=== PATIENT | male | born 1985 | race Caucasian/White ===

== ENCOUNTER 2023-01-06 01:32 | Emergency (ER) | payer MEDICARE ==
--- NOTE | 2023-01-06 01:59 | ERPHSYRPT ---
- History of Present Illness Time Seen by Provider: 01/06/23 01:45 Source: patient, police Exam Limitations: clinical condition Physician History: This is a 37-year-old white male patient who is supposed to be on psychiatric medications and who has a lot of issues going on with his family including his mom being very ill and presented to the emergency department waiting room dressed and then undressed completely naked standing and sitting around. He suddenly left and apparently went to a nearby home and attempted to get into the house and shed in the same condition. Law enforcement was notified and patient was brought into the emergency department. Patient has being diagnosed with severe anxiet, paranoia and delusional behavior. He has not been on his medic ation since April 2022 because he "did not need to be on them". He denies headache, he denies chest pain, he denies shortness of breath, he denies abdominal pain. He denies nausea or vomiting. He denies alcohol use. He also denies illicit drug use. He states he is not suicidal or homicidal. Ad ditional, independent history provided by the patient's sister. Timing/Duration: today Severity of Symptoms-Max: moderate Severity of Symptoms-Current: moderate Associated Symptoms: depressed, paranoid Previous symptoms: no prior history Allergies/Adverse Reactions: No Known Drug Allergies Allergy (Unverified 01/06/23 01:42) Home Medications: No Reportable Medications [No Reported Medications] 01/06/23 [History] Travel Risk - International Travel Have you traveled outside of the country in past 3 weeks: No - Coronavirus Screening Are you exhibiting any of the following symptoms?: No Close contact with a COVID-19 positive Pt in past 14-21 Days: No - Past Medical History Pertinent Past Medical History: Yes Psycho-Social History: Anxiety, Other (Paranoia and delusional behavior) - Review of Systems Constitutional: No Symptoms Eyes: No Symptoms Ears, Nose, & Throat: No Symptoms Respiratory: No Symptoms Cardiac: No Symptoms Abdominal/Gastrointestinal: No Symptoms Genitourinary Symptoms: No Symptoms Musculoskeletal: No Symptoms Skin: No Symptoms Neurological: No Symptoms Psychological: Anxiety, Depression Endocrine: No Symptoms Hematologic/Lymphatic: No Symptoms Immunological/Allergic: No Symptoms All Other Systems: Reviewed and Negative - Nursing Vital Signs Nursing Vital Signs: Initial Vital Signs Blood Pressure 133/98 01/06/23 01:30 Pain Scale Pain Intensity 0 - Physical Exam General Appearance: no apparent distress, alert Eyes, Ears, Nose, Throat Exam: normal ENT inspection, moist mucous membranes Neck Exam: normal inspection, non-tender, supple, full range of motion Respiratory Exam: normal breath sounds, lungs clear, airway intact, No chest tenderness, No respiratory distress Cardiovascular Exam: regular rate/rhythm, normal heart sounds, normal peripheral pulses Gastrointestinal/Abdominal Exam: soft, normal bowel sounds, No tenderness Extremities Exam: normal inspection, normal range of motion, No evidence of injury Current Suicidality: denies suicide plan Neurological Exam: alert, cpr instructor II-XII nml as tested, oriented x 3, anxious, depressed affect Appearance: impaired insight Behavior/Eye Contact/Speech: alert & cooperative, avoids eye contact Thoughts/Hallucinations: delusions, paranoid Skin Exam: normal color, warm, dry SpO2 Interpretation: normal SpO2: 100 O2 Delivery: Room Air - Course Nursing assessment & vital signs reviewed: Yes Ordered Tests: Active Orders 24 hr Category Date Time Status Braided Band Assembler STAT Care 01/06/23 02:06 Active EKG-ER Only STAT Care 01/06/23 02:05 Active ACETAMINOPHEN Stat Lab 01/06/23 02:20 Completed CBC W DIFF Stat Lab 01/06/23 02:20 Completed CMP Stat Lab 01/06/23 02:20 Completed ETHYL ALCOHOL Stat Lab 01/06/23 02:20 Completed SALICYLATE Stat Lab 01/06/23 02:20 Completed UA W/RFX UR CULTURE Stat Lab 01/06/23 02:50 Completed Urine Triage Profile Stat Lab 01/06/23 02:50 Completed Medication Summary Discontinued Medications Generic Name Dose Route Start Last Admin Trade Name Rae PRN Reason Stop Dose Admin Lorazepam 1 mg 01/06/23 02:38 01/06/23 02:46 Lorazepam 2 Mg/1 Ml 2 Mg Vial IM 01/06/23 02:39 1 mg STAT ONE Administration Lorazepam Confirm 01/06/23 02:44 Lorazepam 2 Mg/1 Ml 2 Mg Vial Administered 01/06/23 02:45 Dose 2 mg .ROUTE .STK-MED ONE Lab/Rad Data: Laboratory Result Diagrams 01/06/23 02:20 01/06/23 02:20 Laboratory Results 01/06/23 01/06/23 01/06/23 Range/Units 02:50 02:50 02:20 WBC (4.0-10.5) x10^3/uL RBC (4.1-5.6) x10^6/uL Hgb (12.5-18.0) g/dL Hct (42-50) % MCV (78-100) fL MCH (26-32) pg MCHC (32-36) g/dL RDW (11.5-14.0) % Plt Count (150-450) x10^3/uL MPV (7.5-11.0) fL Gran % (36.0-66.0) % Immature Gran % (Auto) (0.00-0.4) % Nucleat RBC Rel Count (0.00-0.1) % Eos # (Auto) (0-0.5) x10^3/uL Immature Gran # (Auto) (0.00-0.03) x10^3u/L Absolute Lymphs (auto) (1.0-4.6) x10^3/uL Absolute Monos (auto) (0.0-1.3) x10^3/uL Absolute Nucleated RBC (0.00-0.01) x10^3u/L Lymphocytes % (24.0-44.0) % Monocytes % (0.0-12.0) % Eosinophils % (0.00-5.0) % Basophils % (0.0-0.4) % Absolute Granulocytes (1.4-6.9) x10^3/uL Basophils # (0-0.4) x10^3/uL Sodium (137-145) mmol/L Potassium (3.5-5.1) mmol/L Chloride (98-107) mmol/L Carbon Dioxide (22-30) mmol/L Anion Gap (5-15) MEQ/L BUN (9-20) mg/dL Creatinine (0.66-1.25) mg/dL Estimated GFR ML/MIN Glucose (74-106) mg/dL Calcium (8.4-10.2) mg/dL Total Bilirubin (0.2-1.3) mg/dL AST (17-59) U/L ALT (0-50) U/L Alkaline Phosphatase (38-126) U/L Serum Total Protein (6.3-8.2) g/dL Albumin (3.5-5.0) g/dL Urine Color Yellow (Yellow) Urine Appearance Clear (Clear) Urine pH 7.0 (4.6-8.0) Ur Specific [place] <=1.005 (1.005-1.030) Urine Protein Negative (Negative) Urine Glucose (UA) Negative (Negative) mg/dL Urine Ketones Negative (Negative) Urine Blood Negative (Negative) Urine Nitrite Negative (Negative) Urine Bilirubin Negative (Negative) Urine Urobilinogen 0.2 (0.2) mg/dL Ur Leukocyte Esterase Negative (Negative) U Hyaline Cast (Auto) NONE SEEN (0-2) /LPF Urine Microscopic RBC 0-2 (0-5) /HPF Urine Microscopic WBC 0-2 (0-5) /HPF Ur Epithelial Cells None Seen (None Seen) /HPF Urine Bacteria None Seen (None Seen) /HPF Urine Culture Reflexed NO (NO) Salicylates (2-20) mg/dL Urine Opiates Level NEGATIVE (NEGATIVE) Ur Methadone NEGATIVE (NEGATIVE) Acetaminophen (10-30) ug/ml Urine Barbiturates NEGATIVE (NEGATIVE) Ur Phencyclidine (PCP) NEGATIVE (NEGATIVE) Urine Amphetamine NEGATIVE (NEGATIVE) U Benzodiazepine Level NEGATIVE (NEGATIVE) Urine Cocaine NEGATIVE (NEGATIVE) Urine Marijuana (THC) NEGATIVE (NEGATIVE) Ethyl Alcohol (0-10) mg/dL Influenza Type A Ag NEGATIVE (NEGATIVE) Influenza Type B Ag NEGATIVE (NEGATIVE) RSV (PCR) NEGATIVE (NEGATIVE) SARS-CoV-2 (PCR) NEGATIVE (NEGATIVE) 01/06/23 01/06/23 Range/Units 02:20 02:20 WBC 14.3 H (4.0-10.5) x10^3/uL RBC 5.16 (4.1-5.6) x10^6/uL Hgb 15.5 (12.5-18.0) g/dL Hct 46.5 (42-50) % MCV 90.1 (78-100) fL MCH 30.0 (26-32) pg MCHC 33.3 (32-36) g/dL RDW 14.1 H (11.5-14.0) % Plt Count 359 (150-450) x10^3/uL MPV 9.5 (7.5-11.0) fL Gran % 80.7 H (36.0-66.0) % Immature Gran % (Auto) 0.4 (0.00-0.4) % Nucleat RBC Rel Count 0.0 (0.00-0.1) % Eos # (Auto) 0.07 (0-0.5) x10^3/uL Immature Gran # (Auto) 0.06 H (0.00-0.03) x10^3u/L Absolute Lymphs (auto) 1.54 (1.0-4.6) x10^3/uL Absolute Monos (auto) 1.01 (0.0-1.3) x10^3/uL Absolute Nucleated RBC 0.00 (0.00-0.01) x10^3u/L Lymphocytes % 10.8 L (24.0-44.0) % Monocytes % 7.1 (0.0-12.0) % Eosinophils % 0.5 (0.00-5.0) % Basophils % 0.5 (0.0-0.4) % Absolute Granulocytes 11.53 H (1.4-6.9) x10^3/uL Basophils # 0.07 (0-0.4) x10^3/uL Sodium 137 (137-145) mmol/L Potassium 3.6 (3.5-5.1) mmol/L Chloride 107 (98-107) mmol/L Carbon Dioxide 20 L (22-30) mmol/L Anion Gap 14.4 (5-15) MEQ/L BUN 19 (9-20) mg/dL Creatinine 0.74 (0.66-1.25) mg/dL Estimated GFR 118.9 ML/MIN Glucose 114 H (74-106) mg/dL Calcium 9.8 (8.4-10.2) mg/dL Total Bilirubin 0.40 (0.2-1.3) mg/dL AST 20 (17-59) U/L ALT 28 (0-50) U/L Alkaline Phosphatase 65 (38-126) U/L Serum Total Protein 7.5 (6.3-8.2) g/dL Albumin 4.4 (3.5-5.0) g/dL Urine Color (Yellow) Urine Appearance (Clear) Urine pH (4.6-8.0) Ur Specific [place] (1.005-1.030) Urine Protein (Negative) Urine Glucose (UA) (Negative) mg/dL Urine Ketones (Negative) Urine Blood (Negative) Urine Nitrite (Negative) Urine Bilirubin (Negative) Urine Urobilinogen (0.2) mg/dL Ur Leukocyte Esterase (Negative) U Hyaline Cast (Auto) (0-2) /LPF Urine Microscopic RBC (0-5) /HPF Urine Microscopic WBC (0-5) /HPF Ur Epithelial Cells (None Seen) /HPF Urine Bacteria (None Seen) /HPF Urine Culture Reflexed (NO) Salicylates < 1.0 L (2-20) mg/dL Urine Opiates Level (NEGATIVE) Ur Methadone (NEGATIVE) Acetaminophen < 10 L (10-30) ug/ml Urine Barbiturates (NEGATIVE) Ur Phencyclidine (PCP) (NEGATIVE) Urine Amphetamine (NEGATIVE) U Benzodiazepine Level (NEGATIVE) Urine Cocaine (NEGATIVE) Urine Marijuana (THC) (NEGATIVE) Ethyl Alcohol < 10 (0-10) mg/dL Influenza Type A Ag (NEGATIVE) Influenza Type B Ag (NEGATIVE) RSV (PCR) (NEGATIVE) SARS-CoV-2 (PCR) (NEGATIVE) - Progress Progress: unchanged Progress Note: 01/06/23 02:04 Patient's medical issues 1 of moderate complexity. Level complex in the workup performed based on review of the patient's past medical history, review the patient's medication list, review the patient's drug allergy list, history of present illness and physical findings on examination. The workup in this patient includes twelve-lead EKG, CBC, CMP, acetaminophen level, salicylate level and alcohol level as well as urinalysis and urine drug triage. 01/06/23 03:25 I interpreted the patient's laboratory data. There are no acute, emergent labs. Patient does have a mild leukocytosis. This patient was reexamined he is resting comfortably on the Ativan intramuscul ar dose we provided him. Patient does have a prior diagnosis of anxiety and paranoid delusions. I was informed that he actually had mentioned to someone he thought he was God. He has been noncompliant with his medications since April 2022. He is also distraught regarding his mother's poor medical condition that suddenly changed within the last month. The patient is a danger to himself and has delusions. He is not thinking straight. It is freezing outside and he was outside naked. He is also took his clothes off in our emergency department before running out. He tried entering a home and shed and that is how he was brought back into our emergency department by law enforcement. We will send this patient's medical history and laboratory data to inpatient facilities that have beds available. We will await callback from those facilities when a bed is available and we can transfer him there. Patient is under emergency shelter. 01/06/23 06:47 I reexamined the patient. Patient is resting comfortably. He is in no distress at this time. Patient was excepted by [facility]. Dr. Michel is the excepting physician. We are awaiting availability of transport. Counseled pt/family regarding: lab results, diagnosis - Departure Departure Disposition: Transfer Clinical Impression: Delusions, Noncompliance with medication regimen, Inappropriate behavior Condition: Stable Critical Care Time: No Referrals: VICTOR MANUEL ROY PRODUCT GRADER [Primary Care Provider] - Follow up/PCP as directed
[2023-01-06 02:28] LABS: Absolute Neutrophil Ct (ANC) 11.53 x10^3/uL (1.4-6.9); BASOPHIL % 0.5 % (0.0-0.4); Basophil (Absolute #) 0.07 x10^3/uL (0-0.4); Eosinophil % 0.5 % (0.00-5.0); Eosinophil (Absolute #) 0.07 x10^3/uL (0-0.5); Hematocrit 46.5 % (42-50); Hemoglobin 15.5 g/dL (12.5-18.0); IMMATURE GRAN # 0.06 x10^3u/L (0.00-0.03); IMMATURE GRAN % 0.4 % (0.00-0.4); Lymphocyte (Absolute #) 1.54 x10^3/uL (1.0-4.6); Lymphocytes % 10.8 % (24.0-44.0); Mean Cell Volume 90.1 fL (78-100); Mean Corpuscular Hgb Concent. 33.3 g/dL (32-36); Mean Platelet Volume 9.5 fL (7.5-11.0); Monocyte (Absolute #) 1.01 x10^3/uL (0.0-1.3); Monocytes % 7.1 % (0.0-12.0); Neutrophil % 80.7 % (36.0-66.0); Platelet Count 359 x10^3/uL (150-450); Red Blood Count 5.16 x10^6/uL (4.1-5.6); Red Cell Distribution Width 14.1 % (11.5-14.0); White Blood Count 14.3 x10^3/uL (4.0-10.5)
[2023-01-06] MEDS ORDERED: Ativan 2 MG/1 ML VIAL IM ONE (02:38)
[2023-01-06 02:43] LABS: ACETAMINOPHEN < 10 ug/ml (10-30); ALBUMIN 4.4 g/dL (3.5-5.0); ALKALINE PHOSPHATASE 65 U/L (38-126); ANION GAP 14.4 MEQ/L (5-15); BLOOD UREA NITROGEN 19 mg/dL (9-20); CHLORIDE 107 mmol/L (98-107); Calcium 9.8 mg/dL (8.4-10.2); Carbon Dioxide 20 mmol/L (22-30); Creatinine 1 0.74 mg/dL (0.66-1.25); EST GLOMERULAR FILTRATION RATE 118.9 ML/MIN; ETHYL ALCOHOL < 10 mg/dL (0-10); Glucose 114 mg/dL (74-106); Potassium 3.6 mmol/L (3.5-5.1); SALICYLATE < 1.0 mg/dL (2-20); SGOT/AST 20 U/L (17-59); SGPT/ALT 28 U/L (0-50); SODIUM 137 mmol/L (137-145); Total Protein 7.5 g/dL (6.3-8.2)
[2023-01-06] MEDS ORDERED: Ativan 2 MG/1 ML VIAL ONE (02:44)
[2023-01-06 03:04] LABS: INFLUENZA A NEGATIVE (NEGATIVE); INFLUENZA B NEGATIVE (NEGATIVE); RESPIRATORY SYNCTIAL VIRUS NEGATIVE (NEGATIVE); SARS-CoV-2 Xpert Express NEGATIVE (NEGATIVE)
[2023-01-06 03:04] LABS: Appearance Clear (Clear); Bacteria None Seen /HPF (None Seen); Bilirubin Negative (Negative); Blood Negative (Negative); Epithelial Cells None Seen /HPF (None Seen); Glucose, Urine Negative (Negative); Hyaline Casts NONE SEEN /LPF (0-2); Ketones Negative (Negative); Leukocyte Esterase Negative (Negative); Nitrite Negative (Negative); Protein,Urine Dip Negative (Negative); RBC 0-2 /HPF (0-5); Specific Gravity <=1.005 (1.005-1.030); Urobilinogen 0.2 mg/dL (0.2); WBC 0-2 /HPF (0-5)
[2023-01-06 03:06] LABS: ADD URINE CULTURE? NO (NO)
[2023-01-06 03:20] LABS: Amphetamine,Urine NEGATIVE (NEGATIVE); Barbiturate,Urine NEGATIVE (NEGATIVE); Benzodiazepine,Urine NEGATIVE (NEGATIVE); Cocaine,Urine NEGATIVE (NEGATIVE); Methadone,Urine NEGATIVE (NEGATIVE); Opiate,Urine NEGATIVE (NEGATIVE); PCP,Urine NEGATIVE (NEGATIVE); THC,Urine NEGATIVE (NEGATIVE)
[2023-01-06 10:11] VITALS: O2SAT 98
[2023-01-06 11:44] VITALS: BP 110/68; PULSE 68; RESP 20; TEMP 97.8
== END 2023-01-06 11:49 ==
LOC: ED 01:32
DX: F22 Delusional disorders (principal); Z91.148 Patient's other noncompliance with medication regimen for other reason; F41.9 Anxiety disorder, unspecified; Z63.79 Other stressful life events affecting family and household
CPT/HCPCS: 0241U; 36415; 80053; 80143; 80179; 80307; 81001; 82077; 85025; 93005; 93041; 96372; 99285; J2060

== ENCOUNTER 2023-04-23 06:23 | Emergency (ER) | payer MEDICARE ==
[2023-04-23 07:45] LABS: Absolute Neutrophil Ct (ANC) 8.53 x10^3/uL (1.4-6.9); BASOPHIL % 0.4 % (0.0-0.4); Basophil (Absolute #) 0.04 x10^3/uL (0-0.4); Eosinophil % 0.9 % (0.00-5.0); Hematocrit 49.5 % (42-50); Hemoglobin 16.1 g/dL (12.5-18.0); IMMATURE GRAN # 0.04 x10^3u/L (0.00-0.03); IMMATURE GRAN % 0.4 % (0.00-0.4); Lymphocyte (Absolute #) 1.25 x10^3/uL (1.0-4.6); Lymphocytes % 11.4 % (24.0-44.0); Mean Corpuscular Hemoglobin 30.3 pg (26-32); Mean Corpuscular Hgb Concent. 32.5 g/dL (32-36); Mean Platelet Volume 9.1 fL (7.5-11.0); Monocytes % 9.1 % (0.0-12.0); Neutrophil % 77.8 % (36.0-66.0); Platelet Count 350 x10^3/uL (150-450); Red Blood Count 5.32 x10^6/uL (4.1-5.6); Red Cell Distribution Width 13.2 % (11.5-14.0)
[2023-04-23 07:51] VITALS: TEMP 97.9
[2023-04-23 07:56] LABS: ACETAMINOPHEN < 10 ug/ml (10-30); ALBUMIN 4.7 g/dL (3.5-5.0); ALKALINE PHOSPHATASE 59 U/L (38-126); BLOOD UREA NITROGEN 9 mg/dL (9-20); CHLORIDE 109 mmol/L (98-107); Calcium 9.7 mg/dL (8.4-10.2); Carbon Dioxide 22 mmol/L (22-30); Creatinine 1 0.85 mg/dL (0.66-1.25); EST GLOMERULAR FILTRATION RATE 114.1 ML/MIN; ETHYL ALCOHOL < 10 mg/dL (0-10); Glucose 94 mg/dL (74-106); SALICYLATE < 1.0 mg/dL (2-20); SGOT/AST 18 U/L (17-59); SGPT/ALT 20 U/L (0-50); SODIUM 141 mmol/L (135-145); Total Protein 7.6 g/dL (6.3-8.2)
--- NOTE | 2023-04-23 08:05 | ERPHSYRPT ---
- History of Present Illness Time Seen by Provider: 04/23/23 07:02 Source: patient, family Exam Limitations: no limitations Patient Subjective Stated Complaint: none Triage Nursing Assessment: pt ambulated into room 9 independently with slow steady gait after standing on scales for weight acquisition. pt is alert and oriented times three with very flat affect and minimal eye contact. denies pain, nausea, heart racing at this time, sob, difficulty breathing, lightheadedness, dizziness, cp, suicidal ideations, hallucinations, throughts of harming himself or others. when asked about delusional throughts he reports having some recently but not currently- when asked what those thoughts were he stated "I can't remember them right now". pt stated that he took his halcion for sleep last night at approx 2000 and thinks he fell asleep around 2200 and stayed asleep until 0400. states that he intermittently in the last 24hrs has been "shaky" mostly his hands but occasionally his legs also. Physician History: 37 years old male with history of bipolar disorder presented in the ER for psychiatric evaluation. Patient reports he woke up this morning, was anxious, was having difficulty breathing, was shaking, was not feeling himself. When asked to explain he could not tell me but stated that life is not making sense to him. He denies any suicidal or homicidal ideations. Denies any alcohol or drug abuse. Patient reports he has not been driving for the last few days and is staying at home which is adding to his anxiety. Denies any chest pain palpitations or shortness of breath currently. No abdominal pain nausea or vomiting. No known sick contact. Patient recently had a manic episode which needed inpatient management at psych facility. Per sister who is an RN patient is having increasing anxiety as his court date is tomorrow. Allergies/Adverse Reactions: No Known Drug Allergies Allergy (Verified 04/23/23 06:32) Home Medications: Raysal Carbonate 300 mg [Raysal Carbonate 300 MG] 600 mg PO BID 04/23/23 [History] Naltrexone HCl 50 mg PO HS 04/23/23 [History] Rosuvastatin Calcium 5 mg PO HS 04/23/23 [History] Triazolam [Halcion] 0.25 mg PO HS 04/23/23 [History] Hx Tetanus, Diphtheria Vaccination/Date Given: Yes Hx Influenza Vaccination/Date Given: Yes Hx Pneumococcal Vaccination/Date Given: No Immunizations Up to Date: Yes Travel Risk - International Travel Have you traveled outside of the country in past 3 weeks: No - Coronavirus Screening Are you exhibiting any of the following symptoms?: No Close contact with a COVID-19 positive Pt in past 14-21 Days: No - Vaccine Status Have you recieved a Covid-19 vaccination: Yes Stave Planer Tender: Unknown - Vaccination Dates Dates if Unknown: unknown - Past Medical History Pertinent Past Medical History: Yes Neurological History: No Pertinent History ENT History: No Pertinent History Cardiac History: No Pertinent History Respiratory History: No Pertinent History Endocrine Medical History: No Pertinent History Musculoskeletal History: No Pertinent History GI Medical History: No Pertinent History History: No Pertinent History Psycho-Social History: Anxiety, Depression, Other Male Reproductive Disorders: No Pertinent History Other Medical History: co-occuring mental disorders, paranoia - Past Surgical History Past Surgical History: No Neuro Surgical History: No Pertinent History Cardiac: No Pertinent History Respiratory: No Pertinent History Gastrointestinal: No Pertinent History Genitourinary: No Pertinent History Musculoskeletal: No Pertinent History Male Surgical History: No Pertinent History - Social History Smoking Status: Current every day smoker How long have you smoked: 17yo Exposure to second hand smoke: No Drug Use: none Patient Lives Alone: Yes - Review of Systems Constitutional: No Symptoms Eyes: No Symptoms Ears, Nose, & Throat: No Symptoms Respiratory: No Symptoms Cardiac: No Symptoms Abdominal/Gastrointestinal: No Symptoms Genitourinary Symptoms: No Symptoms Musculoskeletal: No Symptoms Skin: No Symptoms Neurological: No Symptoms Psychological: Anxiety, Depression Endocrine: No Symptoms Hematologic/Lymphatic: No Symptoms Immunological/Allergic: No Symptoms - Nursing Vital Signs Nursing Vital Signs: Initial Vital Signs Pulse Rate 118 H 04/23/23 06:32 Respiratory Rate 18 04/23/23 06:32 Blood Pressure 147/87 04/23/23 06:32 O2 Sat by Pulse Oximetry 97 04/23/23 06:32 Pain Scale Pain Intensity 0 - Physical Exam General Appearance: no apparent distress, alert Eyes, Ears, Nose, Throat Exam: normal ENT inspection Neck Exam: normal inspection, non-tender, supple, full range of motion Respiratory Exam: normal breath sounds, lungs clear Cardiovascular Exam: regular rate/rhythm, normal heart sounds Gastrointestinal/Abdominal Exam: soft, normal bowel sounds, No tenderness Extremities Exam: normal inspection Current Suicidality: denies suicide plan Neurological Exam: alert, calm, 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, oriented x 3, No normal mood/affect Appearance: appropriate appearance, appropriate insight, no memory impairment Behavior/Eye Contact/Speech: alert & cooperative, cooperative, avoids eye contact, decreased rate of speech, No good eye contact Thoughts/Hallucinations: normal thought pattern, no apparent hallucination, No delusions Skin Exam: normal color SpO2 Interpretation: normal SpO2: 97 O2 Delivery: Room Air - Course EKG Interpreted by Me: RATE ([id number]), Sinus Rhythm, NORMAL AXIS, NORMAL INTERVALS Ordered Tests: Active Orders 24 hr Category Date Time Status EKG-ER Only STAT Care 04/23/23 07:30 Completed ACETAMINOPHEN Stat Lab 04/23/23 07:40 Completed CBC W DIFF Stat Lab 04/23/23 07:40 Completed CMP Stat Lab 04/23/23 07:40 Completed ETHYL ALCOHOL Stat Lab 04/23/23 07:40 Completed LITHIUM Stat Lab 04/23/23 07:40 Completed SALICYLATE Stat Lab 04/23/23 07:40 Completed TSH, 3RD Generation Stat Lab 04/23/23 09:50 Completed UA W/RFX UR CULTURE Stat Lab 04/23/23 08:06 Completed Urine Triage Profile Stat Lab 04/23/23 08:06 Completed Medication Summary Discontinued Medications Generic Name Dose Route Start Last Admin Trade Name Rae PRN Reason Stop Dose Admin Raysal Carbonate 600 mg 04/23/23 09:30 04/23/23 09:50 Raysal Carbonate 300 Mg Capsule PO 04/23/23 09:31 Not Given ONCE ONE Non-Formulary Drug : 4 each 04/23/23 09:45 04/23/23 09:49 Raysal 150 Mg PO 04/23/23 09:46 4 each NOW ONE Administration Lab/Rad Data: Laboratory Result Diagrams 04/23/23 07:40 04/23/23 07:40 Laboratory Results 04/23/23 04/23/23 04/23/23 Range/Units 09:50 08:06 08:06 WBC (4.0-10.5) x10^3/uL RBC (4.1-5.6) x10^6/uL Hgb (12.5-18.0) g/dL Hct (42-50) % MCV (78-100) fL MCH (26-32) pg MCHC (32-36) g/dL RDW (11.5-14.0) % Plt Count (150-450) x10^3/uL MPV (7.5-11.0) fL Gran % (36.0-66.0) % Immature Gran % (Auto) (0.00-0.4) % Nucleat RBC Rel Count (0.00-0.1) % Eos # (Auto) (0-0.5) x10^3/uL Immature Gran # (Auto) (0.00-0.03) x10^3u/L Absolute Lymphs (auto) (1.0-4.6) x10^3/uL Absolute Monos (auto) (0.0-1.3) x10^3/uL Absolute Nucleated RBC (0.00-0.01) x10^3u/L Lymphocytes % (24.0-44.0) % Monocytes % (0.0-12.0) % Eosinophils % (0.00-5.0) % Basophils % (0.0-0.4) % Absolute Granulocytes (1.4-6.9) x10^3/uL Basophils # (0-0.4) x10^3/uL Sodium (135-145) mmol/L Potassium (3.5-5.1) mmol/L Chloride (98-107) mmol/L Carbon Dioxide (22-30) mmol/L Anion Gap (5-15) MEQ/L BUN (9-20) mg/dL Creatinine (0.66-1.25) mg/dL Estimated GFR ML/MIN Glucose (74-106) mg/dL Calcium (8.4-10.2) mg/dL Total Bilirubin (0.2-1.3) mg/dL AST (17-59) U/L ALT (0-50) U/L Alkaline Phosphatase (38-126) U/L Serum Total Protein (6.3-8.2) g/dL Albumin (3.5-5.0) g/dL TSH 3rd Generation 2.210 (0.47-4.68) mIU/L Urine Color Yellow (Yellow) Urine Appearance Clear (Clear) Urine pH 6.5 (4.6-8.0) Ur Specific [place] 1.010 (1.005-1.030) Urine Protein Negative (Negative) Urine Glucose (UA) 500 A (Negative) mg/dL Urine Ketones Negative (Negative) Urine Blood Negative (Negative) Urine Nitrite Negative (Negative) Urine Bilirubin Negative (Negative) Urine Urobilinogen 1.0 A (0.2) mg/dL Ur Leukocyte Esterase Negative (Negative) U Hyaline Cast (Auto) NONE SEEN (0-2) /LPF Urine Microscopic RBC 0-2 (0-5) /HPF Urine Microscopic WBC 0-2 (0-5) /HPF Ur Epithelial Cells None Seen (None Seen) /HPF Urine Bacteria None Seen (None Seen) /HPF Urine Culture Reflexed NO (NO) Salicylates (2-20) mg/dL Urine Opiates Level NEGATIVE (NEGATIVE) Ur Methadone NEGATIVE (NEGATIVE) Acetaminophen (10-30) ug/ml Urine Barbiturates NEGATIVE (NEGATIVE) Ur Phencyclidine (PCP) NEGATIVE (NEGATIVE) Urine Amphetamine NEGATIVE (NEGATIVE) U Benzodiazepine Level POSITIVE A (NEGATIVE) Raysal (0.60-1.20) mmol/L Urine Cocaine NEGATIVE (NEGATIVE) Urine Marijuana (THC) NEGATIVE (NEGATIVE) Ethyl Alcohol (0-10) mg/dL 04/23/23 04/23/23 04/23/23 Range/Units 07:40 07:40 07:40 WBC 11.0 H (4.0-10.5) x10^3/uL RBC 5.32 (4.1-5.6) x10^6/uL Hgb 16.1 (12.5-18.0) g/dL Hct 49.5 (42-50) % MCV 93.0 (78-100) fL MCH 30.3 (26-32) pg MCHC 32.5 (32-36) g/dL RDW 13.2 (11.5-14.0) % Plt Count 350 (150-450) x10^3/uL MPV 9.1 (7.5-11.0) fL Gran % 77.8 H (36.0-66.0) % Immature Gran % (Auto) 0.4 (0.00-0.4) % Nucleat RBC Rel Count 0.0 (0.00-0.1) % Eos # (Auto) 0.10 (0-0.5) x10^3/uL Immature Gran # (Auto) 0.04 H (0.00-0.03) x10^3u/L Absolute Lymphs (auto) 1.25 (1.0-4.6) x10^3/uL Absolute Monos (auto) 1.00 (0.0-1.3) x10^3/uL Absolute Nucleated RBC 0.00 (0.00-0.01) x10^3u/L Lymphocytes % 11.4 L (24.0-44.0) % Monocytes % 9.1 (0.0-12.0) % Eosinophils % 0.9 (0.00-5.0) % Basophils % 0.4 (0.0-0.4) % Absolute Granulocytes 8.53 H (1.4-6.9) x10^3/uL Basophils # 0.04 (0-0.4) x10^3/uL Sodium 141 (135-145) mmol/L Potassium 4.0 (3.5-5.1) mmol/L Chloride 109 H (98-107) mmol/L Carbon Dioxide 22 (22-30) mmol/L Anion Gap 14.0 (5-15) MEQ/L BUN 9 (9-20) mg/dL Creatinine 0.85 (0.66-1.25) mg/dL Estimated GFR 114.1 ML/MIN Glucose 94 (74-106) mg/dL Calcium 9.7 (8.4-10.2) mg/dL Total Bilirubin 0.30 (0.2-1.3) mg/dL AST 18 (17-59) U/L ALT 20 (0-50) U/L Alkaline Phosphatase 59 (38-126) U/L Serum Total Protein 7.6 (6.3-8.2) g/dL Albumin 4.7 (3.5-5.0) g/dL TSH 3rd Generation (0.47-4.68) mIU/L Urine Color (Yellow) Urine Appearance (Clear) Urine pH (4.6-8.0) Ur Specific [place] (1.005-1.030) Urine Protein (Negative) Urine Glucose (UA) (Negative) mg/dL Urine Ketones (Negative) Urine Blood (Negative) Urine Nitrite (Negative) Urine Bilirubin (Negative) Urine Urobilinogen (0.2) mg/dL Ur Leukocyte Esterase (Negative) U Hyaline Cast (Auto) (0-2) /LPF Urine Microscopic RBC (0-5) /HPF Urine Microscopic WBC (0-5) /HPF Ur Epithelial Cells (None Seen) /HPF Urine Bacteria (None Seen) /HPF Urine Culture Reflexed (NO) Salicylates < 1.0 L (2-20) mg/dL Urine Opiates Level (NEGATIVE) Ur Methadone (NEGATIVE) Acetaminophen < 10 L (10-30) ug/ml Urine Barbiturates (NEGATIVE) Ur Phencyclidine (PCP) (NEGATIVE) Urine Amphetamine (NEGATIVE) U Benzodiazepine Level (NEGATIVE) Raysal 0.7 (0.60-1.20) mmol/L Urine Cocaine (NEGATIVE) Urine Marijuana (THC) (NEGATIVE) Ethyl Alcohol < 10 (0-10) mg/dL - Progress Progress: unchanged Progress Note: 04/23/23 14:31 37 years old is evaluated for shakiness and anxiety symptoms this morning. Patient has no suicidal or homicidal ideations asking repeatedly in different ways he denies. Patient has no paranoia or hallucinations/delusions. Although patient is not making eye contact and has a slow rate of speech and is unable to explain his symptoms. He is medically cleared. Behavioral health evaluation through [facility] is obtained and they recommended voluntary admission to a facility other than [facility] as he does not meet their criteria for admission. Patient does not want to stay in the hospital now. Per sister who is an RN, patient has a good support system and do not think is an imminent threat to self or anyone else and he will be staying with her today. She also thinks is more of a anxiety. Patient/sister decided not to stay in the hospital, discussed the importance of staying in inpatient psychiatric facility with further evaluation and therapy which could improve his symptoms and quality of life but they are adamant about going home. Discussed about AMA which would not only delay diagnosis, would also lead to worsening of condition leading to suicidal ideation and can be life-threatening to self or someone else but they still want to go home. Patient walked out of the ER in a stable condition. Counseled pt/family regarding: diagnosis, need for follow-up, rad results Medical Desision Making - Independent Historian Additional History obtained from: Family - Diagnostic Testing Diagnostic test were ordered, analyzed, and reviewed by me: Yes - Risk of complications The pt has a high risk of morbidity or mortality based on: Decision regarding hospitilization or escalation of hosp level of care - Departure Departure Disposition: AMA Clinical Impression: Anxiety, Depressive disorder Condition: Stable Critical Care Time: No Referrals: VICTOR MANUEL ROY NP [Primary Care Provider] - Follow up with PCP 1 day Additional Instructions: Follow-up with primary care and [facility] for reevaluation as recommended. Return to ER for worsening of symptoms or if having suicidal or homicidal ideations.
[2023-04-23 08:18] LABS: Appearance Clear (Clear); Bacteria None Seen /HPF (None Seen); Bilirubin Negative (Negative); Blood Negative (Negative); Epithelial Cells None Seen /HPF (None Seen); Glucose, Urine 500 mg/dL (Negative); Hyaline Casts NONE SEEN /LPF (0-2); Ketones Negative (Negative); Leukocyte Esterase Negative (Negative); Nitrite Negative (Negative); Ph 6.5 (4.6-8.0); Protein,Urine Dip Negative (Negative); RBC 0-2 /HPF (0-5); WBC 0-2 /HPF (0-5)
[2023-04-23 08:19] LABS: ADD URINE CULTURE? NO (NO)
[2023-04-23 08:28] LABS: Amphetamine,Urine NEGATIVE (NEGATIVE); Barbiturate,Urine NEGATIVE (NEGATIVE); Benzodiazepine,Urine POSITIVE (NEGATIVE); Cocaine,Urine NEGATIVE (NEGATIVE); Methadone,Urine NEGATIVE (NEGATIVE); Opiate,Urine NEGATIVE (NEGATIVE); PCP,Urine NEGATIVE (NEGATIVE); THC,Urine NEGATIVE (NEGATIVE)
[2023-04-23] MEDS: NON-FORMULARY ITEM PO ONE (09:49)
[2023-04-23] MEDS: Lithium Carbonate 300 MG PO ONE (09:50)
[2023-04-23 12:18] VITALS: PULSE 92; RESP 16
[2023-04-23 14:33] VITALS: O2SAT 97
[2023-04-23 14:47] VITALS: BP 145/91
== END 2023-04-23 14:42 | disposition left against medical advice (07) ==
LOC: ED 06:23
DX: F41.9 Anxiety disorder, unspecified (principal); F32.A Depression, unspecified; Z79.899 Other long term (current) drug therapy; Z72.0 Tobacco use
CPT/HCPCS: 36415; 80053; 80143; 80178; 80179; 80307; 81001; 82077; 84436; 84443; 85025; 93005; 99284

== ENCOUNTER 2023-05-15 13:51 | Emergency (ER) | payer MEDICARE ==
[2023-05-15 13:56] VITALS: TEMP 97.8; O2SAT 98
[2023-05-15] MEDS ORDERED: BABY ASPIRIN 81 MG CHEW ONE (14:19)
[2023-05-15] MEDS ORDERED: Sodium Chloride 0.9% 1000 ML 1,000 ML ONE (14:19)
[2023-05-15] MEDS: BABY ASPIRIN 81 MG CHEW PO ONE (14:22)
[2023-05-15] MEDS: Sodium Chloride 0.9% 1000 ML 1,000 ML IV STA (14:23)
--- NOTE | 2023-05-15 14:25 | ERPHSYRPT ---
- History of Present Illness Time Seen by Provider: 05/15/23 13:51 Source: patient Exam Limitations: no limitations Patient Subjective Stated Complaint: Pt states "I was just out walking and I got a little short of breath." Triage Nursing Assessment: Pt presented alert and oriented X3, skin pwd. pt ambulates with an upright steady gait, able to speak in clear full sentences. PT resting comfortably on the bed. Physician History: Patient states that he was walking and felt slightly short of breath. Feels more improved now. Patient does smoke 2 packs of cigarettes a day. He does not have any chest pain. Has not been going on for a few days. Has only occurred over the past few hours. Sitting in bed at rest he feels good. He is not trying to make it better or worse. Describes his symptoms as generalized. Allergies/Adverse Reactions: No Known Drug Allergies Allergy (Verified 04/23/23 06:32) Home Medications: Rosuvastatin Calcium 5 mg PO DAILY 05/15/23 [History] Hx Tetanus, Diphtheria Vaccination/Date Given: Yes Hx Influenza Vaccination/Date Given: Yes Hx Pneumococcal Vaccination/Date Given: No Immunizations Up to Date: Yes Travel Risk - International Travel Have you traveled outside of the country in past 3 weeks: No - Emerging Infectious Disease Are you exhibiting symptoms associated with any current EIDs: Yes Symptoms: Shortness of Breath - Past Medical History Pertinent Past Medical History: Yes Neurological History: No Pertinent History ENT History: No Pertinent History Cardiac History: No Pertinent History Respiratory History: No Pertinent History Endocrine Medical History: No Pertinent History Musculoskeletal History: No Pertinent History GI Medical History: No Pertinent History History: No Pertinent History Psycho-Social History: Anxiety, Depression, Other Male Reproductive Disorders: No Pertinent History Other Medical History: co-occuring mental disorders, paranoia - Past Surgical History Past Surgical History: No Neuro Surgical History: No Pertinent History Cardiac: No Pertinent History Respiratory: No Pertinent History Gastrointestinal: No Pertinent History Genitourinary: No Pertinent History Musculoskeletal: No Pertinent History Male Surgical History: No Pertinent History - Social History Smoking Status: Current every day smoker How long have you smoked: 17yo Exposure to second hand smoke: Yes Drug Use: none Patient Lives Alone: Yes - Nursing Vital Signs Nursing Vital Signs: Initial Vital Signs Pulse Rate 92 H 05/15/23 13:50 Respiratory Rate 18 05/15/23 13:50 Blood Pressure 167/102 05/15/23 13:50 O2 Sat by Pulse Oximetry 97 05/15/23 13:50 Pain Scale Pain Intensity 0 - Physical Exam SpO2 Interpretation: normal SpO2: 98 Comments: 05/15/23 14:24 Review of Systems Constitutional: Negative for fever. HENT: Negative for congestion. Respiratory: Shortness of breath Cardiovascular: Negative for chest pain. Gastrointestinal: Negative for abdominal pain. Genitourinary: Negative for dysuria. Musculoskeletal: Negative for back pain. Skin: Negative for rash. Neurological: Negative for headaches. Psychiatric/Behavioral: Negative for behavioral problems. All other systems reviewed and are negative. Physical Exam Vitals signs and nursing note reviewed. Constitutional: Appearance: Patient is well-developed. HENT: Head: Normocephalic and atraumatic. Eyes: Conjunctiva/sclera: Conjunctivae normal. Neck: Musculoskeletal: Normal range of motion. Trachea: No tracheal deviation. Cardiovascular: Rate and Rhythm: Normal rate. Pulmonary: Effort: Pulmonary effort is normal. No respiratory distress. Abdominal: Palpations: Abdomen is soft. Musculoskeletal: General: No deformity. Skin: General: Skin is warm and dry. Neurological/ Psychiatric: Mental Status: Mental status, behavior, interaction with environment is appropriate for patient's age and condition - Course Nursing assessment & vital signs reviewed: Yes EKG Interpreted by Me: Sinus Rhythm Ordered Tests: Active Orders 24 hr Category Date Time Status Steam Station Supervisor STAT Care 05/15/23 14:11 Completed EKG-ER Only STAT Care 05/15/23 14:09 Completed IV Insertion STAT Care 05/15/23 14:09 Completed CHEST 1 VIEW (PORTABLE) Stat Exams 05/15/23 14:11 Completed CBC W DIFF Stat Lab 05/15/23 14:15 Completed CK-Creatinine Phosphokinase Stat Lab 05/15/23 14:15 Completed CMP Stat Lab 05/15/23 14:15 Completed D-DIMER QUANTITATIVE Stat Lab 05/15/23 14:40 Completed LIPASE Stat Lab 05/15/23 14:15 Completed NT PRO BNPII Stat Lab 05/15/23 14:15 Completed TROPONIN Q4H Lab 05/15/23 14:15 Completed Medication Summary Discontinued Medications Generic Name Dose Route Start Last Admin Trade Name Freq PRN Reason Stop Dose Admin Aspirin 324 mg 05/15/23 14:09 05/15/23 14:22 Aspirin 81 Mg Tab.Chew PO 05/15/23 14:10 324 mg STAT ONE Administration Aspirin Confirm 05/15/23 14:19 Aspirin 81 Mg Tab.Chew Administered 05/15/23 14:20 Dose 324 mg .ROUTE .STK-MED ONE Sodium Chloride 1,000 mls @ 999 mls/hr 05/15/23 14:09 05/15/23 14:23 Sodium Chloride 0.9% 1000 Ml IV 05/15/23 15:09 999 mls/hr .Q1H1M STA Administration Sodium Chloride Confirm 05/15/23 14:19 Sodium Chloride 0.9% 1000 Ml Administered 05/15/23 14:20 Dose 1,000 mls @ ud .ROUTE .STDel [employer]-MED ONE Lab/Rad Data: Laboratory Result Diagrams 05/15/23 14:15 05/15/23 14:15 Laboratory Results 05/15/23 05/15/23 05/15/23 Range/Units 14:40 14:15 14:15 WBC (4.0-10.5) x10^3/uL RBC (4.1-5.6) x10^6/uL Hgb (12.5-18.0) g/dL Hct (42-50) % MCV (78-100) fL MCH (26-32) pg MCHC (32-36) g/dL RDW (11.5-14.0) % Plt Count (150-450) x10^3/uL MPV (7.5-11.0) fL Gran % (36.0-66.0) % Immature Gran % (Auto) (0.00-0.4) % Nucleat RBC Rel Count (0.00-0.1) % Eos # (Auto) (0-0.5) x10^3/uL Immature Gran # (Auto) (0.00-0.03) x10^3u/L Absolute Lymphs (auto) (1.0-4.6) x10^3/uL Absolute Monos (auto) (0.0-1.3) x10^3/uL Absolute Nucleated RBC (0.00-0.01) x10^3u/L Lymphocytes % (24.0-44.0) % Monocytes % (0.0-12.0) % Eosinophils % (0.00-5.0) % Basophils % (0.0-0.4) % Absolute Granulocytes (1.4-6.9) x10^3/uL Basophils # (0-0.4) x10^3/uL D-Dimer < 0.19 (0.0-0.50) mg/L Sodium 139 (135-145) mmol/L Potassium 3.8 (3.5-5.1) mmol/L Chloride 108 H (98-107) mmol/L Carbon Dioxide 23 (22-30) mmol/L Anion Gap 11.2 (5-15) MEQ/L BUN 14 (9-20) mg/dL Creatinine 0.75 (0.66-1.25) mg/dL Estimated GFR 118.5 ML/MIN Glucose 130 H (74-106) mg/dL Calcium 9.5 (8.4-10.2) mg/dL Total Bilirubin 0.50 (0.2-1.3) mg/dL AST 18 (17-59) U/L ALT 21 (0-50) U/L Alkaline Phosphatase 54 (38-126) U/L Creatine Kinase 59 (55-170) U/L Troponin I < 0.012 (0.000-0.033) ng/mL NT-Pro-B Natriuret Pep 53.6 (<300) pg/mL Serum Total Protein 7.1 (6.3-8.2) g/dL Albumin 4.3 (3.5-5.0) g/dL Lipase 43 (23-300) U/L /07/02 Range/Units 14:15 WBC 8.9 (4.0-10.5) x10^3/uL RBC 5.15 (4.1-5.6) x10^6/uL Hgb 15.7 (12.5-18.0) g/dL Hct 46.7 (42-50) % MCV 90.7 (78-100) fL MCH 30.5 (26-32) pg MCHC 33.6 (32-36) g/dL RDW 13.6 (11.5-14.0) % Plt Count 292 (150-450) x10^3/uL MPV 9.5 (7.5-11.0) fL Gran % 76.7 H (36.0-66.0) % Immature Gran % (Auto) 0.2 (0.00-0.4) % Nucleat RBC Rel Count 0.0 (0.00-0.1) % Eos # (Auto) 0.03 (0-0.5) x10^3/uL Immature Gran # (Auto) 0.02 (0.00-0.03) x10^3u/L Absolute Lymphs (auto) 1.43 (1.0-4.6) x10^3/uL Absolute Monos (auto) 0.57 (0.0-1.3) x10^3/uL Absolute Nucleated RBC 0.00 (0.00-0.01) x10^3u/L Lymphocytes % 16.0 L (24.0-44.0) % Monocytes % 6.4 (0.0-12.0) % Eosinophils % 0.3 (0.00-5.0) % Basophils % 0.4 (0.0-0.4) % Absolute Granulocytes 6.82 (1.4-6.9) x10^3/uL Basophils # 0.04 (0-0.4) x10^3/uL D-Dimer (0.0-0.50) mg/L Sodium (135-145) mmol/L Potassium (3.5-5.1) mmol/L Chloride (98-107) mmol/L Carbon Dioxide (22-30) mmol/L Anion Gap (5-15) MEQ/L BUN (9-20) mg/dL Creatinine (0.66-1.25) mg/dL Estimated GFR ML/MIN Glucose (74-106) mg/dL Calcium (8.4-10.2) mg/dL Total Bilirubin (0.2-1.3) mg/dL AST (17-59) U/L ALT (0-50) U/L Alkaline Phosphatase (38-126) U/L Creatine Kinase (55-170) U/L Troponin I (0.000-0.033) ng/mL NT-Pro-B Natriuret Pep (<300) pg/mL Serum Total Protein (6.3-8.2) g/dL Albumin (3.5-5.0) g/dL Lipase (23-300) U/L - Progress Progress: improved Progress Note: 05/15/23 14:25 Differential diagnosis includes: PNA, STEMI, NSTEMI, other infection, musculoskeletal pain, pneumothorax, pulmonary embolism - We'll obtain basic labs, fluids, EKG, troponin, chest x-ray, D-dimer - EKG shows no ST changes - my read - O2 saturations consistently greater than 95%. - CXR shows no pneumonia, pneumothorax - my read 05/15/23 15:43 Patient feels improved here. Tachycardia has resolved with fluids. D-dimer negative. Plan for discharge home at this point in time. Patient will need to return here sooner for any new or changing symptoms. 05/15/23 15:44 Counseled pt/family regarding: lab results, diagnosis, need for follow-up, rad results, smoking cessation - Departure Departure Disposition: Home Clinical Impression: Shortness of breath Condition: Stable Critical Care Time: No Referrals: VICTOR MANUEL ROY NP [Primary Care Provider] - Follow up/PCP as directed Instructions: Shortness of Breath (Dyspnea) (DC)
[2023-05-15 14:26] LABS: Absolute Neutrophil Ct (ANC) 6.82 x10^3/uL (1.4-6.9); BASOPHIL % 0.4 % (0.0-0.4); Basophil (Absolute #) 0.04 x10^3/uL (0-0.4); Eosinophil % 0.3 % (0.00-5.0); Eosinophil (Absolute #) 0.03 x10^3/uL (0-0.5); Hematocrit 46.7 % (42-50); Hemoglobin 15.7 g/dL (12.5-18.0); IMMATURE GRAN # 0.02 x10^3u/L (0.00-0.03); IMMATURE GRAN % 0.2 % (0.00-0.4); Lymphocyte (Absolute #) 1.43 x10^3/uL (1.0-4.6); Mean Cell Volume 90.7 fL (78-100); Mean Corpuscular Hemoglobin 30.5 pg (26-32); Mean Corpuscular Hgb Concent. 33.6 g/dL (32-36); Mean Platelet Volume 9.5 fL (7.5-11.0); Monocyte (Absolute #) 0.57 x10^3/uL (0.0-1.3); Monocytes % 6.4 % (0.0-12.0); Neutrophil % 76.7 % (36.0-66.0); Platelet Count 292 x10^3/uL (150-450); Red Blood Count 5.15 x10^6/uL (4.1-5.6); Red Cell Distribution Width 13.6 % (11.5-14.0); White Blood Count 8.9 x10^3/uL (4.0-10.5)
--- NOTE | 2023-05-15 14:30 | XRAY ---
Indication: Short of breath. Comparison: None Portable chest demonstrates normal heart, lungs, and bony thorax.
[2023-05-15 14:46] LABS: ALBUMIN 4.3 g/dL (3.5-5.0); ANION GAP 11.2 MEQ/L (5-15); BILIRUBIN,TOTAL 0.5 mg/dL (0.2-1.3); Calcium 9.5 mg/dL (8.4-10.2); Creatinine 1 0.75 mg/dL (0.66-1.25); EST GLOMERULAR FILTRATION RATE 118.5 ML/MIN; NT PRO BNPII 53.6 pg/mL (<300); Potassium 3.8 mmol/L (3.5-5.1); Total Protein 7.1 g/dL (6.3-8.2)
[2023-05-15 15:16] VITALS: RESP 20
[2023-05-15 15:22] VITALS: BP 147/106; PULSE 66
== END 2023-05-15 15:23 | disposition home or self-care (01) ==
LOC: ED 13:51
DX: R06.02 Shortness of breath (principal); Z79.899 Other long term (current) drug therapy; Z72.0 Tobacco use
CPT/HCPCS: 36000; 36415; 71045; 80053; 82550; 83690; 83880; 84484; 85025; 85379; 93005; 93041; 99284; A9270-GY

== ENCOUNTER 2023-05-16 18:51 | Emergency (ER) | payer MEDICARE ==
[2023-05-16] MEDS ORDERED: Zofran 4 MG/2 ML VIAL ONE (18:59)
[2023-05-16] MEDS ORDERED: SUBLIMAZE 100 MCG/2 ML ONE (18:59)
[2023-05-16] MEDS ORDERED: CLINDAMYCIN-D5W 600 MG/50 ML*** 600 MG/50 ML BAG IV ONE (19:09)
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
[2023-05-16] MEDS ORDERED: CLINDAMYCIN-D5W 600 MG/50 ML*** 600 MG/50 ML BAG IV STA (19:12)
[2023-05-16] MEDS ORDERED: SUBLIMAZE 100 MCG/2 ML IV ONE (19:13)
[2023-05-16] MEDS ORDERED: Sodium Chloride 0.9% 1000 ML 1,000 ML IV STA (19:13)
[2023-05-16] MEDS ORDERED: Sodium Chloride 0.9% 1000 ML 1,000 ML ONE (19:14)
[2023-05-16 19:17] VITALS: O2SAT 97
[2023-05-16 19:18] VITALS: BP 143/93; PULSE 124; RESP 20
[2023-05-16 19:19] LABS: Absolute Neutrophil Ct (ANC) 12.42 x10^3/uL (1.4-6.9); BASOPHIL % 0.3 % (0.0-0.4); Basophil (Absolute #) 0.05 x10^3/uL (0-0.4); Eosinophil % 0.4 % (0.00-5.0); Eosinophil (Absolute #) 0.06 x10^3/uL (0-0.5); Hematocrit 41.3 % (42-50); Hemoglobin 13.7 g/dL (12.5-18.0); IMMATURE GRAN # 0.05 x10^3u/L (0.00-0.03); IMMATURE GRAN % 0.3 % (0.00-0.4); Lymphocyte (Absolute #) 1.68 x10^3/uL (1.0-4.6); Lymphocytes % 10.9 % (24.0-44.0); Mean Cell Volume 92.2 fL (78-100); Mean Corpuscular Hemoglobin 30.6 pg (26-32); Mean Corpuscular Hgb Concent. 33.2 g/dL (32-36); Mean Platelet Volume 9.3 fL (7.5-11.0); Monocyte (Absolute #) 1.15 x10^3/uL (0.0-1.3); Monocytes % 7.5 % (0.0-12.0); Neutrophil % 80.6 % (36.0-66.0); Platelet Count 305 x10^3/uL (150-450); Red Blood Count 4.48 x10^6/uL (4.1-5.6); Red Cell Distribution Width 13.7 % (11.5-14.0); White Blood Count 15.4 x10^3/uL (4.0-10.5)
[2023-05-16 19:33] LABS: ALBUMIN 3.7 g/dL (3.5-5.0); ANION GAP 10.9 MEQ/L (5-15); BILIRUBIN,TOTAL 0.2 mg/dL (0.2-1.3); Calcium 8.7 mg/dL (8.4-10.2); Creatinine 1 0.92 mg/dL (0.66-1.25); EST GLOMERULAR FILTRATION RATE 109.2 ML/MIN; Potassium 3.5 mmol/L (3.5-5.1); Total Protein 6.5 g/dL (6.3-8.2)
[2023-05-16 19:34] LABS: INR 1.01 (0.8-3.0); PTT 24.2 SECONDS (25.1-36.5)
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
== END 2023-05-16 19:27 | disposition short-term general hospital (02) ==
LOC: ED 18:51
DX: S21.112A Laceration without foreign body of left front wall of thorax without penetration into thoracic cavity, initial encounter (principal); S27.0XXA Traumatic pneumothorax, initial encounter; X78.1XXA Intentional self-harm by knife, initial encounter; Z79.899 Other long term (current) drug therapy; Z72.0 Tobacco use
CPT/HCPCS: 36000; 36415; 71045; 80053; 82150; 83690; 83735; 84484; 85025; 85610; 85730; 93005; 93041; 96365; 96374; 96375; 99285; 99291; J2405; J3010